=== PATIENT | female | born 1955 | race Caucasian/White ===

== ENCOUNTER 2020-08-11 10:57 | Outpatient (CLI) | payer OTHER, SELFPAY ==
[2020-08-11 11:49] LABS: Basophils Absolute Auto 0.1 K/mm3 (0.0-0.1); Basophils Percent Auto 0.9 % (0.2-1.2); Eosinophils Absolute Auto 0.7 K/mm3 (0-0.3); Eosinophils Percent Auto 9.4 % (0-4.4); Hematocrit 38.9 % (37.0-47.0); Hemoglobin 13.1 g/dL (12.0-15.0); Immature Granulocyte Absolute 0.03 K/mm3 (0.00-0.031); Immature Granulocyte Percent A 0.4 % (0-0.5); Lymphocytes Absolute Auto 2.32 K/mm3 (0.9-3.2); Mean Corpuscular HGB Conc 33.7 g/dl (32-36); Mean Corpuscular Hemoglobin 32.2 pg (26-34); Mean Corpuscular Volume 95.6 fl (80-100); Mean Platelet Volume 9.9 fl (7.4-10.4); Monocytes Absolute Auto 0.6 K/mm3 (0.1-0.6); Monocytes Percent Auto 8.4 % (2.6-8.5); Neutrophils Absolute Auto 3.4 K/mm3 (1.3-6.7); Neutrophils Percent Auto 47.9 % (45.5-73.1); Platelet Count Result 252 k/mm3 (150-375); Red Blood Count 4.07 M/mm3 (4.2-5.4); Red Cell Distribution Width 13.1 % (11.5-14.5)
[2020-08-11 12:01] LABS: Anion Gap 5 mmol/L (8-16); Blood Urea Nitrogen 22 mg/dL (7-17); Calcium 9.9 mg/dL (8.4-10.2); Carbon Dioxide 32 mmol/L (22-30); Chloride 101 mmol/L (98-107); Estimated Glomerular Filt Rate > 60; Glucose 107 mg/dL (65-105); Potassium 4.4 mmol/L (3.4-5.0); Sodium 138 mmol/L (137-145)
[2020-08-11 12:02] LABS: Alanine Aminotransferase 16 U/L (4-35); Albumin Level 4.2 g/dL (3.5-5.1); Alkaline Phosphatase 90 U/L (38-126); Aspartate Amino Transferase 27 U/L (14-36); Bilirubin,Total 0.4 mg/dL (0.2-1.3); Cholesterol 222 mg/dL (0-200); HDL Direct 66 mg/dL; Triglycerides 132 mg/dL (<150)
[2020-08-11 12:12] LABS: LDL Cholesterol Direct 133 mg/dL
== END 2020-08-11 10:58 | disposition home or self-care (01) ==
PROVIDERS: PCP Internal Medicine; Visit Provider Nurse Practitioner
DX: F32.9 Major depressive disorder, single episode, unspecified (principal); Z87.891 Personal history of nicotine dependence
CPT/HCPCS: 36415; 80053; 80061; 85025

== ENCOUNTER → 2021-05-02 06:33 | Outpatient (CLI) | payer OTHER, SELFPAY ==
[2021-05-03 01:23] LABS: SARS-CoV-2 RNA PCR Negative
== END ==
PROVIDERS: PCP Internal Medicine; Visit Provider Nurse Practitioner
DX: R05 Cough (principal); Z20.822 Contact with and (suspected) exposure to COVID-19
CPT/HCPCS: C9803; U0003; U0005

== ENCOUNTER 2022-04-20 09:27 | Outpatient (CLI) | payer OTHER, SELFPAY ==
[2022-04-20 13:04] LABS: Basophils Absolute Auto 0.1 K/mm3 (0.0-0.1); Basophils Percent Auto 0.7 % (0.2-1.2); Eosinophils Absolute Auto 0.5 K/mm3 (0-0.3); Eosinophils Percent Auto 7.8 % (0-4.4); Hematocrit 40.4 % (37.0-47.0); Hemoglobin 12.9 g/dL (12.0-15.0); Immature Granulocyte Absolute 0.01 K/mm3 (0.00-0.031); Immature Granulocyte Percent A 0.1 % (0-0.5); Lymphocytes Absolute Auto 2.38 K/mm3 (0.9-3.2); Lymphocytes Percent Auto 35.5 % (18.3-44.2); Mean Corpuscular HGB Conc 31.9 g/dl (32-36); Mean Corpuscular Hemoglobin 32.1 pg (26-34); Mean Corpuscular Volume 100.5 fl (80-100); Mean Platelet Volume 10.3 fl (7.4-10.4); Monocytes Absolute Auto 0.6 K/mm3 (0.1-0.6); Monocytes Percent Auto 8.8 % (2.6-8.5); Neutrophils Absolute Auto 3.2 K/mm3 (1.3-6.7); Neutrophils Percent Auto 47.1 % (45.5-73.1); Platelet Count Result 286 k/mm3 (150-375); Red Blood Count 4.02 M/mm3 (4.2-5.4); Red Cell Distribution Width 14.2 % (11.5-14.5); White Blood Count 6.7 K/mm3 (4.5-10.0)
[2022-04-20 13:29] LABS: Alanine Aminotransferase 21 U/L (6-35); Alkaline Phosphatase 100 U/L (38-126); Anion Gap 10 mmol/L (8-16); Aspartate Amino Transferase 29 U/L (14-36); Bilirubin,Total 0.3 mg/dL (0.2-1.3); Blood Urea Nitrogen 15 mg/dL (7-17); Calcium 10.5 mg/dL (8.4-10.2); Carbon Dioxide 30 mmol/L (22-30); Chloride 98 mmol/L (98-107); Cholesterol 197 mg/dL (0-200); Estimated Glomerular Filt Rate > 60; Glucose 113 mg/dL (65-110); HDL Direct 68 mg/dL; Potassium 4.4 mmol/L (3.4-5.0); Sodium 138 mmol/L (137-145); Triglycerides 102 mg/dL (<150)
[2022-04-20 13:32] LABS: LDL Cholesterol Direct 91 mg/dL
[2022-04-20 13:40] LABS: Vitamin D 25 Hydroxy 32.2 ng/mL
[2022-04-20 15:54] LABS: Albumin Level 4.4 g/dL (3.5-5.1)
== END 2022-04-20 09:28 | disposition home or self-care (01) ==
LOC: ANHGOSHLAB 09:29
PROVIDERS: PCP Internal Medicine; Visit Provider Clinical Nurse Specialist
DX: E55.9 Vitamin D deficiency, unspecified (principal); Z13.228 Encounter for screening for other metabolic disorders; F41.9 Anxiety disorder, unspecified; E78.5 Hyperlipidemia, unspecified
CPT/HCPCS: 36415; 80053; 80061; 82306; 84443; 85025